=== PATIENT | male | born 1985 | race Caucasian/White ===

== ENCOUNTER 2019-01-04 13:28 | Emergency (ER) | payer OTHER, SELFPAY ==
[2019-01-04 13:50] VITALS: BP 122/76; PULSE 73; RESP 16; TEMP 36.7; O2SAT 100
--- NOTE | 2019-01-04 13:56 | DI.CT_ITS ---
SYMPTOMS/DIAGNOSIS: BLUNT TRAUMA, RIGHT CHEST/ABDOMEN PAIN S/P FALL CT SCAN OF THE CHEST, ABDOMEN AND PELVIS: CT scan of the chest, abdomen and pelvis was performed following the uneventful administration of intravenous contrast material. There are no priors for comparison. CT SCAN OF THE ABDOMEN AND PELVIS: The liver is normal in size. No hepatic mass or laceration is seen. The portal, superior mesenteric and splenic veins are patent. The gallbladder is negative. No biliary ductal dilatation is seen. The pancreas, spleen and adrenal glands are unremarkable. The kidneys show normal and symmetric enhancement. No solid renal mass or obstruction is seen. No laceration is identified. The urinary bladder is intact. The reproductive organs are unremarkable. The bowel shows no evidence of obstruction or inflammation. There is a normal appendix present. The aorta is of normal caliber. No significant abdominal or pelvic adenopathy, ascites or pneumoperitoneum is present. The bones are intact. IMPRESSION: No evidence of an acute abdominal or pelvic organ injury. CT SCAN OF THE CHEST: The thoracic aorta is of normal caliber. The heart size is within normal limits. No significant pericardial effusion is seen. No significant thoracic adenopathy, pleural effusion or pneumothorax is identified. The lungs are clear. The tracheobronchial tree is unremarkable. The bones are intact. IMPRESSION: No evidence of acute thoracic injury.
--- NOTE | 2019-01-04 13:59 | ED.GENADUL_ITS ---
Discharge Plan Disposition Patient Disposition: HOME Condition: Improving Discharge Details Chief Complaint: Chest/Rib Clinical Impression: Contusion of right front wall of thorax Reason For Visit: chest injury / fall Primary Care Provider: Irena Zaldivar ED Provider: Jewel Brown Home Meds and New Rx's Prescriptions: No Action hydrocodone-acetaminophen [Vicodin] 1 EACH tablet 1 ea PO Q6H PRN PRNQty: 14 RF: 0 Discharge Instructions Instructions: Contusion in Adults (ED) Additional Instructions: Home to rest today. You will likely have increased muscular soreness tomorrow. Ibuprofen 800 mg every 8 hours, with food. May also use Tylenol 1000 mg every 6 hours if needed for pain. Ice to reduce discomfort Return if you develop a fever, cough, or any other acute concern Stand Alone Forms: Work Release Medical Decision Making 33-year-old male presents with fall last night from ground-level, landing with the right lateral thorax on a concrete block. He denies loss of conscious but is developed right thorax and abdomen pain over the course of the day today. He arrives with normal vital signs. Differential diagnosis includes rib contusion, underlying fracture, visceral injury of the lung or abdomen. IV placed, was given fluid bolus, referred for laboratory tests and CT images. Patient offered and declined parenteral medication. The images do not reveal underlying visceral or bony injury. Patient remained stable. He is appropriate for outpatient management of right chest wall contusion. Discussed with him home management as well as return precautions. HPI General Mode of arrival: ambulatory . Date/Time Provider Initiated Documentation: 01/04/19 13:52 . Limitations to Documentation: no limitations . Information obtained by: patient . History of Present Illness 33 year old M presents to the emergency department with the chief complaint of Right chest and abdomen pain after fall last night., described as moderate, Quality is described as aching, and is localized to the chest and right. Patient reports radiation to back. Patient started experiencing this hour(s) and it has been constant. Rest improves symptom(s), Movement worsens symptoms . Patient notes denies headaches, syncope and weakness. Patient did receive the following treatments prior to arrival, none Related Data Home Medications Medication Instructions Recorded Confirmed hydrocodone-acetaminophen [Vicodin 1 ea PO Q6H PRN PRN #14 tablet 08/19/16 5-300 mg Tablet] Previous Rx's Medication Instructions Recorded hydrocodone-acetaminophen [Vicodin 1 ea PO Q6H PRN PRN #14 tablet 08/19/16 5-300 mg Tablet] Allergies Allergy/AdvReac Type Severity Reaction Status Date / Time Penicillins Allergy Severe Anaphylaxsi Unverified 01/04/19 13:55 s General Stated Complaint: Chest/Rib RESHMA: 3 Review of Systems Review of Systems 8 systems reviewed and otherwise negative [facility] Social History Smoking and Tabacco status: Current every day Exam Narrative Exam Narrative: GEN: awake, alert, oriented 3. Pleasant, well groomed, interactive. HEAD: Normocephalic, atraumatic ENT: Mucous membranes moist, oropharynx unremarkable, External ear exam unremarkable EYES: PERRL, EOMI NECK: Full ROM, no ISSAC, no menigismus CHEST/RESP: Right lateral chest wall tenderness to palpation, clear to auscultation bilateral, no wheeze/rhonchi/rales CARDIOVASCULAR: RRR, no murmur, rub charles. 2+ Rad pulse bilateral ABDOMEN: Soft, right upper quadrant tenderness to palpate, no mass. +Bowel sounds EXT: Full ROM, no edema, no rash Neuro: Grossly normal neurologic exam, conversant, interactive. Psych: Speech fluent, thoughts congruent, affect normal Course Vital Signs Temperature 36.7 C 01/04/19 13:50 Pulse 73 01/04/19 13:50 Respiratory Rate 16 01/04/19 13:50 Blood Pressure 122/76 01/04/19 13:50 Pulse Oximetry 100 01/04/19 13:50 Temperature 36.7 C 01/04/19 13:50 Temperature Source Temporal Artery Scan 01/04/19 13:50 Pulse 73 01/04/19 13:50 Respiratory Rate 16 01/04/19 13:50 Respiratory Effort 01/04/19 13:54 Blood Pressure 122/76 01/04/19 13:50 Blood Pressure Position Sitting 01/04/19 13:50 Pulse Oximetry 100 01/04/19 13:50 Oxygen Delivery Method Room Air 01/04/19 13:50 Oxygen Flow Rate 0 01/04/19 13:50 Pain Level 10 01/04/19 13:50
[2019-01-04 14:36] LABS: Abs Immature Grans 0.01 k/cumm (0.0-0.09); Absolute Basophil Count 0.08 k/cumm (0.0-0.2); Absolute Eosinophil Count 0.25 k/cumm (0.0-0.7); Absolute Lymphocyte Count 2.47 k/cumm (1.2-3.4); Absolute Monocyte Count 1.26 k/cumm (0.11-0.7); Absolute Neutrophil Count 5.58 k/cumm (1.2-6.7); Basophils % 0.8; Eosinophils % 2.6; HGB 15.9 g/dL (13.5-17.5); Immature Grans % 0.1; Lymphocytes % 25.6; Mean Corp. HGB Concentration 35.3 g/dL (32.0-36.0); Mean Corpuscular Volume 96.2 fL (80-95); Mean Platelet Volume 9.4 fL (8.0-11.0); Monocytes % 13.1; Neutrophils % 57.8; Platelet Count 261 x1000/uL (130-400); RBC 4.68 m/cumm (4.50-6.00); RBC Distribution Width 13.6 % (11.8-14.1); White Blood Cell Count 9.65 k/cumm (4.4-10.8)
[2019-01-04 14:48] LABS: ALT 38 U/L (12-78); AST 37 U/L (15-37); Alkaline Phosphatase 87 U/L (46-116); BUN 8 mg/dL (7-18); Bilirubin, Total 0.2 mg/dL (0.2-1.0); CREATININE 1.16 mg/dL (0.70-1.30); Calcium 8.7 mg/dL (8.5-10.1); Chloride 107 mmol/L (98-107); Glucose 104 mg/dL (70-100); Potassium 3.3 mmol/L (3.5-5.1); Sodium 145 mmol/L (136-145); Total Protein 7.5 g/dL (6.4-8.2)
[2019-01-04] MEDS: Omnipaque 350 MG/ML 100 ML BTL IJ (15:04)
--- NOTE | 2019-01-04 15:12 | DI.VRAD_ITS ---
EXAM: CT Chest With Contrast EXAM DATE/TIME: 01/04/2019 1:58 PM CLINICAL HISTORY: 33 years old, male; Pain; Abdominal pain; Other: Fall, blunt trauma, RT sided chest and abd pain; Chest pain; Right-sided chest pain; Patient HX: RT sided chest and abdominal pain after fall TECHNIQUE: Axial computed tomography images of the chest with intravenous contrast. All CT scans at this facility use at least one of these dose optimization techniques: automated exposure control; mA and/or kV adjustment per patient size (includes targeted exams where dose is matched to clinical indication); or iterative reconstruction. Coronal and sagittal reformatted images were created and reviewed. CONTRAST: 100 ml of Omnipaque 350 administered intravenously. COMPARISON: No relevant prior studies available. FINDINGS: Mediastinum unremarkable. No significant focal consolidation. No pleural effusion. No evidence of pneumothorax. Bony structures intact. IMPRESSION: No evidence of significant cardiopulmonary disease. EXAM: CT Abdomen and Pelvis With Contrast EXAM DATE/TIME: 01/04/2019 1:58 PM CLINICAL HISTORY: 33 years old, male; Pain; Abdominal pain; Other: Fall, blunt trauma, RT sided chest and abd pain; Chest pain; Right-sided chest pain; Patient HX: RT sided chest and abdominal pain after fall TECHNIQUE: Axial computed tomography images of the abdomen and pelvis with intravenous contrast. All CT scans at this facility use at least one of these dose optimization techniques: automated exposure control; mA and/or kV adjustment per patient size (includes targeted exams where dose is matched to clinical indication); or iterative reconstruction. Coronal and sagittal reformatted images were created and reviewed. CONTRAST: 100 ml of Omnipaque 350 administered intravenously. COMPARISON: No relevant prior studies available. FINDINGS: Appendix is normal. Normal appearing solid organs. No intestinal obstruction. No obstructive uropathy. No free fluid. No free air. No inflammatory changes. Bony structures intact. IMPRESSION: No evidence of significant abdominal or pelvic trauma. Dictated and Authenticated by: Raulito David MD. Ordering:STEFANIE Holloway MD
[2019-01-04 15:38] VITALS: BP 118/72; PULSE 80; RESP 16; O2SAT 100
== END 2019-01-04 15:36 | disposition home or self-care (01) ==
PROVIDERS: Emergency Provider Emergency Medicine; PCP Physician Assistant Medical
DX: S20.211A Contusion of right front wall of thorax, initial encounter (principal); W00.0XXA Fall on same level due to ice and snow, initial encounter; W01.198A Fall on same level from slipping, tripping and stumbling with subsequent striking against other object, initial encounter
CPT/HCPCS: 36415; 74177; 80053; 99285; 71260; 85025; 99284; J3490

== ENCOUNTER 2019-04-27 00:07 | Emergency (ER) | payer OTHER, SELFPAY ==
[2019-04-27 00:12] VITALS: BP 141/76; PULSE 77; RESP 16; TEMP 37; O2SAT 97
--- NOTE | 2019-04-27 00:16 | W.ED.GENAD ---
Discharge Plan Disposition Patient Disposition: HOME Condition: Stable Discharge Details Chief Complaint: AnimalBite Clinical Impression: Tick bite Primary Care Provider: Irena Zaldivar ED Provider: Randy Lopes Home Meds and New Rx's Prescriptions: No Action hydrocodone-acetaminophen [Vicodin] 1 EACH tablet 1 ea PO Q6H PRN PRNQty: 7 RF: 0 Discharge Instructions Instructions: Tick Bite (ED) Medical Decision Making 33 yo male noticed a small tick on his back tonight and tried to remove and didn't think he removed it so came here. Denies any other symptoms. He removed the body, and on left mid back lateral to midline has 2mm of erythema with leg and head that are still attached to the skin that I was able to brush away. Will d/c home, doesn't sound like a deer tick and less than 36 horus so do not feel lyme ppx indicated Differential Diagnosis tick bite HPI General Mode of arrival: ambulatory. Date/Time Provider Initiated Documentation: 04/27/19 00:07. Limitations to Documentation: no limitations. Information obtained by: patient. History of Present Illness 33 year old M presents to the emergency department with the chief complaint of tick bite, and is localized to the back. Patient started experiencing this hour(s) (1) and it has been constant. No relieving factors improve symptom(s), No exacerbating factors reported . Patient notes no other symptoms.. Related Data Home Medications Medication Instructions Recorded Confirmed Unknown [No Known Home Meds] 04/27/19 04/27/19 Allergies Allergy/AdvReac Type Severity Reaction Status Date / Time Penicillins Allergy Severe Anaphylaxsi Unverified 04/27/19 00:18 s General RESHMA: 3 Review of Systems Review of Systems All systems reviewed & are unremarkable except as noted in HPI and below Constitutional Denies chills, Denies fever(s) and Denies weakness Cardiovascular Denies chest pain and Denies dyspnea Respiratory Denies cough and Denies dyspnea Gastrointestinal Denies abdominal pain, Denies nausea and Denies vomiting Integumentary/Breasts Denies rash Neurologic Denies weakness [facility] Social History Smoking/Tobacco Use Status: Current every day Alcohol Intake: current Alcohol Intake frequency: a few times a week Drug use: Occasionally Substance use type: marijuana Do you feel safe at home: Yes Do you feel safe in your relationship?: Yes Exam Const General: no acute distress Orientation: alert HENMT Head: normal to inspection Ears: external ears normal General nose exam: external nose normal Mouth: moist mucous membranes Eyes General: appearance normal, both eyes and all related structures Neck Neck: normal visual inspection Resp Effort & Inspection: normal respiratory effort and able to speak in complete sentences Cardio Rate: regular rate Skin General skin exam: no rashes or lesions noted Neuro General: alert and oriented x3 Extrem General: normal to inspection Psych Mental Status: mental status grossly normal
--- NOTE | 2019-04-27 00:20 | ED.GENADUL_ITS ---
Discharge Plan Disposition Patient Disposition: HOME Condition: Stable Discharge Details Chief Complaint: AnimalBite Clinical Impression: Tick bite Primary Care Provider: Irena Zaldivar ED Provider: Randy Lopes Home Meds and New Rx's Prescriptions: No Action hydrocodone-acetaminophen [Vicodin] 1 EACH tablet 1 ea PO Q6H PRN PRNQty: 7 RF: 0 Discharge Instructions Instructions: Tick Bite (ED) Medical Decision Making 33 yo male noticed a small tick on his back tonight and tried to remove and didn't think he removed it so came here. Denies any other symptoms. He removed the body, and on left mid back lateral to midline has 2mm of erythema with leg and head that are still attached to the skin that I was able to brush away. Will d/c home, doesn't sound like a deer tick and less than 36 horus so do not feel lyme ppx indicated Differential Diagnosis tick bite HPI General Mode of arrival: ambulatory . Date/Time Provider Initiated Documentation: 04/27/19 00:07 . Limitations to Documentation: no limitations . Information obtained by: patient . History of Present Illness 33 year old M presents to the emergency department with the chief complaint of tick bite, and is localized to the back. Patient started experiencing this hour(s) (1) and it has been constant. No relieving factors improve symptom(s), No exacerbating factors reported . Patient notes no other symptoms.. Related Data Home Medications Medication Instructions Recorded Confirmed Unknown [No Known Home Meds] 04/27/19 04/27/19 Allergies Allergy/AdvReac Type Severity Reaction Status Date / Time Penicillins Allergy Severe Anaphylaxsi Unverified 04/27/19 00:18 s General RESHMA: 3 Review of Systems Review of Systems All systems reviewed & are unremarkable except as noted in HPI and below Constitutional Denies chills, Denies fever(s) and Denies weakness Cardiovascular Denies chest pain and Denies dyspnea Respiratory Denies cough and Denies dyspnea Gastrointestinal Denies abdominal pain, Denies nausea and Denies vomiting Integumentary/Breasts Denies rash Neurologic Denies weakness [facility] Social History Smoking/Tobacco Use Status: Current every day Alcohol Intake: current Alcohol Intake frequency: a few times a week Drug use: Occasionally Substance use type: marijuana Do you feel safe at home: Yes Do you feel safe in your relationship?: Yes Exam Const General: no acute distress Orientation: alert HENMT Head: normal to inspection Ears: external ears normal General nose exam: external nose normal Mouth: moist mucous membranes Eyes General: appearance normal, both eyes and all related structures Neck Neck: normal visual inspection Resp Effort & Inspection: normal respiratory effort and able to speak in complete sentences Cardio Rate: regular rate Skin General skin exam: no rashes or lesions noted Neuro General: alert and oriented x3 Extrem General: normal to inspection Psych Mental Status: mental status grossly normal
== END 2019-04-27 00:20 | disposition home or self-care (01) ==
PROVIDERS: Emergency Provider Emergency Medicine; PCP Physician Assistant Medical
DX: S20.461A Insect bite (nonvenomous) of right back wall of thorax, initial encounter (principal); W57.XXXA Bitten or stung by nonvenomous insect and other nonvenomous arthropods, initial encounter
CPT/HCPCS: 99283

== ENCOUNTER 2019-05-29 20:45 | Outpatient (REF) | payer OTHER, SELFPAY ==
[2019-05-29 19:31] LABS: ALT 33 U/L (12-78); AST 21 U/L (15-37); Albumin 3.9 g/dL (3.4-5.0); Alkaline Phosphatase 75 U/L (46-116); Anion Gap 12.3 mmol/L (3-11); BUN 13 mg/dL (7-18); Bilirubin, Total 0.3 mg/dL (0.2-1.0); CO2 23.7 mmol/L (21.0-32.0); CREATININE 0.87 mg/dL (0.70-1.30); Calcium 8.6 mg/dL (8.5-10.1); Chloride 107 mmol/L (98-107); Glucose 83 mg/dL (70-100); Potassium 4.3 mmol/L (3.5-5.1); Sodium 143 mmol/L (136-145); TSH (W/Ref FT4) 1.16 uIU/mL (0.358-3.74); Total Protein 6.6 g/dL (6.4-8.2)
== END 2019-05-29 21:05 ==
LOC: NCHCN 20:45
PROVIDERS: PCP Physician Assistant Medical; Visit Provider Physician Assistant Medical
DX: K62.5 Hemorrhage of anus and rectum (principal); F41.9 Anxiety disorder, unspecified
CPT/HCPCS: 80053; 84443

== ENCOUNTER 2019-07-28 11:14 | Emergency (ER) | payer OTHER, SELFPAY ==
[2019-07-28 11:19] VITALS: BP 121/71; PULSE 54; RESP 16; TEMP 36.8; O2SAT 99
[2019-07-28] MEDS: Lidocaine 5% Patch 1 PATCH TP (11:25)
--- NOTE | 2019-07-28 11:25 | DI.RAD_ITS ---
SYMPTOMS/DIAGNOSIS: MEDIAL ELBOW PAIN AND SWELLING RIGHT ELBOW: No fracture or joint effusion is seen. There are no bony erosions. The bones appear normally mineralized. No soft tissue foreign body is seen. IMPRESSION: Negative right elbow.
--- NOTE | 2019-07-28 11:47 | W.ED.GENAD ---
Discharge Plan Disposition Patient Disposition: HOME Condition: Good Discharge Details Chief Complaint: Orthopedic Clinical Impression: Epicondylitis elbow, medial, Elbow sprain Primary Care Provider: Irena Zaldivar ED Provider: Navneet Neil Home Meds and New Rx's Prescriptions: New lidocaine [Lidoderm] 1 PATCH patch 1 patch Topical Q24H Qty: 4 RF: 0 acetaminophen [Mapap Extra Strength] 500 MG tablet 1,000 mg PO Q6H 5 Days Qty: 60 RF: 0 ibuprofen [Motrin IB] 200 MG tablet 600 mg PO Q6H 5 Days Qty: 60 RF: 0 Discharge Instructions Instructions: Tennis Elbow (ED) Additional Instructions: Your symptoms are consistent with medial epicondylitis. This is most likely from strain, and mild injury to the ligaments on the inside component of your elbow. I have included discharge instructions for tennis elbow, however this is for the outside part of your elbow but the education and mechanism are very similar. Please use the forearm brace as directed, use ice as often as possible, take Tylenol and Motrin as needed for pain. Avoid any heavy lifting or use with that elbow. If your symptoms do not improve over the next 1 to 2 weeks with this conservative therapy you may require follow-up with an rfid specialist. If you notice any worsening of your symptoms, or any new symptoms such as vomiting, diarrhea, fever, chills, shortness of breath, chest pain, numbness, weakness, or fainting , please return immediately to the emergency department for reevaluation. Please follow up with your primary care provider as soon as possible for reassessment and reevaluation. As always, it was a pleasure participating in your medical care today. Stand Alone Forms: Work Release Referrals: Irena Zaldivar PA [Primary Care Provider] - Medical Decision Making This is a pleasant 33-year-old male who is [id number] who works at [employer] who presents today for evaluation of right medial elbow pain. He was playing baseball yesterday when he felt significant pain at the medial aspect while pitching, he continued to play throughout the night and this continued to cause significant to moderate pain. He has been using ice but his pain is continued, he is also developed subjective tingling at the distal tips of his third fourth and fifth fingers. Physical exam demonstrates notable swelling over the medial aspect of his elbow. X-rays negative for acute fracture. Symptoms are notably worsened with pronation, flexion of the wrist, and flexion at the elbow. I suspect notable medial epicondylitis, mild bursitis, and potential lateral collateral tendon tear. We will recommend Lidoderm patch, NSAIDs, ice, and close follow-up. We have given him a forearm brace and he has notable improvement of his symptoms with this. We discussed the importance of avoiding activities which can worsen the symptoms, as well as the importance of potentially requiring orthopedic follow-up if his symptoms do not improve with conservative management. I have extensively reviewed the treatment plan and discharge instructions with the patient. I have addressed all patient concerns at this time. The patient was made aware of what symptoms to monitor for that would warrant a return to the emergency department. Discussed the plan with the patient, they demonstrate verbal understanding and agreement with our assessment and plan at this time. HPI General Date/Time Provider Initiated Documentation: 07/28/19 11:18. HPI Narrative: This is a pleasant 33-year-old male who presents today for right elbow pain. He is right-hand dominant. 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 He states that he was playing baseball yesterday when he threw a pitch and noticed some significant pain at the medial aspect of his right elbow. He then continued to play, and every time he would swing the bat his pain would continue or worsen. He noticed significant swelling there this morning, pain is made worse with movement. He does admit to slight tingling over his third fourth and fifth digits over the distal tips. He denies any other complaints or pain in his forearm, shoulder, or hand. He denies any other modifying factors. He has been taking NSAIDs and ice to help with the pain. Related Data Home Medications Medication Instructions Recorded Confirmed acetaminophen [Mapap Extra 1,000 mg PO Q6H 5 Days #60 tab 07/28/19 Strength] ibuprofen [Motrin Ib] 600 mg PO Q6H 5 Days #60 tab 07/28/19 lidocaine [Lidoderm] 1 patch TOPICAL Q24H #4 patch 07/28/19 Previous Rx's Medication Instructions Recorded acetaminophen [Mapap Extra 1,000 mg PO Q6H 5 Days #60 tab 07/28/19 Strength] ibuprofen [Motrin Ib] 600 mg PO Q6H 5 Days #60 tab 07/28/19 lidocaine [Lidoderm] 1 patch TOPICAL Q24H #4 patch 07/28/19 Allergies Allergy/AdvReac Type Severity Reaction Status Date / Time Penicillins Allergy Severe Anaphylaxsi Unverified 07/28/19 11:26 s General Stated Complaint: Orthopedic RESHMA: 4 Review of Systems Review of Systems All systems reviewed & are unremarkable except as noted in HPI and below PFSH Social History Smoking/Tobacco Use Status: Current every day Tobacco Type: cigarettes Alcohol Intake: current Alcohol Intake frequency: a few times a week Drug use: Occasionally Substance use type: marijuana Do you feel safe at home: Yes Do you feel safe in your relationship?: Yes Exam Narrative Exam Narrative: 1.Const: Well-nourished, Well-developed, appearing stated age 2.Eyes: PERRL, no conjunctival injection, and symmetrical lids. 3.ENT: Atraumatic external nose and ears. Moist MM. Neck: Symmetric, trachea midline, No thyromegaly. 4.CVS: +S1/S2, No murmurs or gallops. Peripheral pulses 2+ and equal in all extremities. Brisk capillary refill in all extremities. 5.RESP: Unlabored respiratory effort. Clear to auscultation bilaterally. No wheezes rales or rhonchi 6.GI: Soft, Nontender/Nondistended, No hepatosplenomegaly. No guarding or rebound. 7.MSK: Normocephalic/Atraumatic, Extremities w/o deformity. No cyanosis or clubbing Right upper extremity: Patient demonstrates mild swelling and tenderness over the medial aspect of the right elbow specifically over the medial epicondyles and the cubital tunnel. Pain is notably made worse with pronation, as well as flexion at the elbow. Slightly worsened with extension, no significant pain with pronation. Notable worsening of pain with flexion of the wrist. Not so much with extension. No evidence of significant biceps tendon dislocation. No evidence of triceps dislocation. Capillary refill is brisk. Symmetrically palpable radial and ulnar pulses. Capillary refill less than 2 seconds to all digits. Intact sensation to light touch of the radial, median and ulnar nerves demonstrated by testing in the dorsal web space of the thumb, the distal palmar aspect of the index finger, and the lateral surface of the fifth finger. 2 point discrimination intact to 5mm (up to 6mm can be normal in digits 3-5) of discrimination in the affected digit. Intact motor function of the radial, median and ulnar nerves demonstrated by strength of extension of the isolated distal joint of the index finger, hand soil conservation technician, and spreading of the 2nd through 5th digits. Intact recurrent median nerve as demonstrated by ability to move thumb fully through opposition, abduction and flexion. No snuffbox tenderness. 8.Skin: Warm, Dry. No rashes or lesions. 9.Neuro: family preservation caseworker II-XII grossly intact. Sensation grossly intact, no focal neurologic deficits. Sensation appears to be intact for all fingers on the affected hand, including two-point discrimination up to 5 mm on each finger. 10.Psych: (AAO) x3. Appropriate mood and affect Course Vital Signs Temperature 36.8 C 07/28/19 11:19 Pulse 54 L 07/28/19 11:19 Respiratory Rate 16 07/28/19 11:19 Blood Pressure 121/71 07/28/19 11:19 Pulse Oximetry 99 07/28/19 11:19 Temperature 36.8 C 07/28/19 11:19 Temperature Source Skin 07/28/19 11:19 Pulse 54 L 07/28/19 11:19 Respiratory Rate 16 07/28/19 11:19 Respiratory Effort Non-Labored 07/28/19 11:19 Blood Pressure 121/71 07/28/19 11:19 Blood Pressure Position Sitting 07/28/19 11:19 Pulse Oximetry 99 07/28/19 11:19 Oxygen Delivery Method Room Air 07/28/19 11:19 Oxygen Flow Rate 0 07/28/19 11:19 Pain Level 5 07/28/19 11:19
== END 2019-07-28 12:03 | disposition home or self-care (01) ==
PROVIDERS: Emergency Provider Student in an Organized Health Care Education/Training Program; PCP Physician Assistant Medical
DX: M77.01 Medial epicondylitis, right elbow (principal); S53.401A Unspecified sprain of right elbow, initial encounter; W50.3XXA Accidental bite by another person, initial encounter
CPT/HCPCS: 29105; 99283; 73080

== ENCOUNTER 2020-02-23 01:58 | Outpatient (CLI) | payer OTHER, SELFPAY ==
[2020-02-26 14:37] LABS: SARS-CoV-2 RNA Undetected (Undetected); SARS-CoV-2 Specimen Source Nasopharynx
== END 2020-02-23 02:18 ==
PROVIDERS: PCP Physician Assistant Medical; Visit Provider Specialist/Technologist Athletic Trainer
DX: Z20.828 Contact with and (suspected) exposure to other viral communicable diseases (principal)
CPT/HCPCS: U0003

== ENCOUNTER 2020-09-27 19:30 | Emergency (ER) | payer OTHER, SELFPAY ==
[2020-09-27 19:36] VITALS: BP 138/73; PULSE 81; RESP 20; TEMP 37.2; O2SAT 97
--- NOTE | 2020-09-27 19:46 | ED.GENADUL_ITS ---
Discharge Plan Disposition Patient Disposition: HOME Condition: Improving Discharge Details Clinical Impression: Sciatica, Low back pain Primary Care Provider: Irena Zaldivar ED Provider: Juliana Mayes Home Meds and New Rx's Prescriptions: New diazepam [Valium] 5 mg tablet 5 mg PO TID PRN (Reason: muscle spasm) Qty: 10 RF: 0 Continued lidocaine [Lidoderm] 1 PATCH patch 1 patch Topical Q24H Qty: 4 RF: 0 Discharge Instructions Instructions: Diazepam (By mouth), Sciatica (ED), Low Back Strain (ED) Additional Instructions: Encourage water intake. Encourage gentle stretching and frequent ambulation. You may use a Tylenol brace of Tylenol 4 times a day as well as 600 mg of ibuprofen 4 times a day. You may apply lidocaine patch as previously instructed. Use the Valium as prescribed. Keep this medication in a safe place and use only as directed. Do not drive will take this medication. You may use half to 1 full tab to help with muscle spasm. Attached is a referral to physical therapy. Please call tomorrow to schedule follow-up appointment. Please also call your primary care tomorrow to schedule follow-up in the next 1 to 2 weeks for reevaluation. If you develop fever/chills, sensation changes, change in bowel or bladder habits, rash or other new/worsening symptoms please seek care urgently once again. Stand Alone Forms: Physical Therapy Referral, Work Release Referrals: Irena Zaldivar PA [Primary Care Provider] - Medical Decision Making Patient is a pleasant 35 year old male presenting today with c/c of right sided lower back/buttock pain. He has had pain like this historically. Last time was in 2012 with same presentation. Pain started a few days ago. Worse with rotation to right and forward flexion. 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 He denies any trauma. No change in bowel or bladder habits. Denies any fevers or chills. No sensory deficits. No weakness. Patient's been using Tylenol discomfort. On exam, patient appears uncomfortable. He indicates the upper right buttock is area of discomfort. No rashes or lesions noted. No normal left, no saddle paresthesias. No midline tenderness or paraspinal tenderness. Weakness from prior extremities. Patient does fine improvement with stretching. Patient did well last time with Valium and Toradol. We will give the same Tylenol and Lidoderm patch as well. Discussed this plan with the patient. Patient reports feeling 80% improved. He feels that he is able to go home and rest at this time. I encouraged frequent ambulation and gentle stretching. Patient is stretching on the bed. Will refer patient to physical therapy. Advised to continue with Tylenol and ibuprofen. He does have lidocaine patches at home. Also discussed continuing with p.o. Valium. She did get quite fatigued with Valium given here. I advised that he may cut this in half and take 2.5 mg instead of the full 5. He will not drive while taking this medication. Return precautions were discussed. He will follow up with primary care in the next 2-week if not completely improved. All his questions or sary rns were addressed and he is in agreement this plan. HPI General Mode of arrival: ambulatory . Date/Time Provider Initiated Documentation: 09/27/20 19:31 . Limitations to Documentation: no limitations . Information obtained by: patient and RN notes reviewed . History of Present Illness 35 year old M presents to the emergency department with the chief complaint of right sided low back/buttock pain, described as severe and similar to prior episodes (hx right sided sciatica), with intensity rated at 10. Quality is described as stabbing, and is localized to the buttocks and right. Patient reports no radiation. Patient started experiencing this day(s) and it has been constant. Immobilization improves symptom(s), Movement worsens symptoms . Patient notes no other symptoms.. Patient did receive the following treatments prior to arrival, none Related Data Home Medications Medication Instructions Recorded Confirmed lidocaine [Lidoderm] 1 patch TOPICAL Q24H #4 patch 07/28/19 diazepam [Valium] 5 mg PO TID PRN #10 tab 09/27/20 Previous Rx's Medication Instructions Recorded lidocaine [Lidoderm] 1 patch TOPICAL Q24H #4 patch 07/28/19 diazepam [Valium] 5 mg PO TID PRN #10 tab 09/27/20 Allergies Allergy/AdvReac Type Severity Reaction Status Date / Time Penicillins Allergy Severe Anaphylaxsi Unverified 09/27/20 19:45 s General Stated Complaint: Nk/Back Pain RESHMA: 3 Review of Systems Constitutional Constitutional: Reports as per HPI, Denies chills, Denies fatigue, Denies fever(s), Denies frequent falls and Denies headache(s) Eyes Eyes: Denies change in vision ENT Ears, Nose, Mouth, and Throat: Denies headache(s) Cardiovascular Cardiovascular: Denies chest pain, Denies dyspnea and Denies dyspnea on exertion Respiratory Respiratory: Denies cough, Denies dyspnea and Denies dyspnea on exertion Gastrointestinal Gastrointestinal: Denies abdominal pain, Denies change in bowel habits and Denies fecal incontinence Genitourinary Genitourinary: Reports as per HPI, Denies urinary hesitancy and Denies urinary incontinence Musculoskeletal Musculoskeletal: Reports as per HPI, Reports back pain, Denies muscle weakness, Denies numbness, Denies radiating pain into limb, Reports stiffness and Denies tingling Integumentary/Breasts Skin/Breast: Reports as per HPI and Denies rash Neurologic Neurologic: Reports as per HPI, Denies frequent falls, Denies headache(s), Denies localized weakness, Denies numbness, Denies radicular pain, Denies sensory deficit, Denies tingling and Denies paresthesias Endocrine Endocrine: Denies fatigue [facility] Social History Smoking/Tobacco Use Status: Current every day Tobacco Type: cigarettes Smoking risk assessment performed?: Yes Alcohol Intake: current Alcohol Intake frequency: a few times a week Drug use: Occasionally Substance use type: does not use and marijuana Do you feel safe at home: Yes Do you feel safe in your relationship?: Yes Exam Const General: cooperative, healthy appearing, uncomfortable, no acute distress, well developed and well groomed Nutritional Appearance: average body habitus and well nourished Orientation: alert and awake Eyes General: appearance normal, both eyes and all related structures Neck Neck: normal visual inspection, full ROM, no lymphadenopathy and no meningeal signs Resp Effort & Inspection: normal respiratory effort and able to speak in complete sentences Auscultation: clear to auscultation bilaterally, no rales, no rhonchi and no wheezes Cardio Rate: regular rate Rhythm: regular rhythm Heart Sounds: S1 normal and S2 normal Back/Spine/Pelvis Cervical Spine: normal cervical lordosis Thoracic/Lumbar Spine: thoracic and lumbar spine normal to inspection, thoraco-lumbar ROM normal, pain with thoraco-lumbar ROM (forward flexioin and rotation to the right), No paraspinal tenderness, No thoraco-lumbar ROM limited, No thoraco-lumbar spasm, No thoracic spinal tenderness and No lumbar spinal tenderness Back/spine/pelvis image: 1. area of pain. No erythema, warmth, swelling. No pain with palpation. Skin General skin exam: no rashes or lesions noted Neuro General: patient alert and patient awake Cognition: normal cognition Speech: speech normal Gait: antalgic Motor: muscle tone normal throughout, strength 5/5 throughout, no movement abnormalities noted and no fasciculations Sensory Exam: no sensory deficits noted (no saddle paresthesias) DTR's: Rt Patellar: 2+ and Lt Patellar: 2+ Extrem General: normal to inspection, full ROM, capillary refill normal, no joint enlargement, no pedal edema, no calf tenderness and normal gait Psych Appearance: grossly normal and well kempt Mental Status: mental status grossly normal Speech and Movement: speech and movement normal Course Vital Signs Vital signs: Vital Signs Temperature 37.2 C 09/27/20 19:36 Pulse 81 09/27/20 19:36 Respiratory Rate 09/27/20 19:36 Blood Pressure 138/73 09/27/20 19:36 Pulse Oximetry 97 09/27/20 19:36 Temperature 37.2 C 09/27/20 19:36 Temperature Source Tympanic 09/27/20 19:36 Pulse 81 09/27/20 19:36 Respiratory Rate 20 09/27/20 19:36 Respiratory Effort 09/27/20 19:38 Blood Pressure 138/73 09/27/20 19:36 Pulse Oximetry 97 09/27/20 19:36 Oxygen Delivery Method Room Air 09/27/20 19:36 Oxygen Flow Rate 0 09/27/20 19:36 Pain Level 10 09/27/20 19:36
[2020-09-27] MEDS: Acetaminophen 500 MG TAB 1000 MG PO (20:01)
[2020-09-27] MEDS: diazePAM 5 MG TAB PO ×2 (20:01→20:49)
[2020-09-27] MEDS: Ketorolac 60 MG/2 ML VIAL IM (20:01)
[2020-09-27] MEDS: Lidocaine 5% Patch 1 PATCH TP (20:01)
[2020-09-27 20:47] VITALS: BP 122/83; PULSE 76; RESP 18; O2SAT 97
== END 2020-09-27 20:55 | disposition home or self-care (01) ==
PROVIDERS: Emergency Provider Physician Assistant; PCP Physician Assistant Medical
DX: M54.41 Lumbago with sciatica, right side (principal)
CPT/HCPCS: 96372; 99284; 99283; J1885

== ENCOUNTER 2021-02-07 20:14 | Outpatient (REF) | payer OTHER, SELFPAY ==
[2021-02-07 20:10] LABS: Abs Immature Grans 0.02 10^3/uL (0.0-0.06); Absolute Basophil Count 0.07 10^3/uL (0.0-0.2); Absolute Lymphocyte Count 2.18 10^3/uL (1.2-3.4); Absolute Monocyte Count 0.73 10^3/uL (0.1-0.8); Absolute Neutrophil Count 4.52 10^3/uL (1.2-6.7); Basophils % 0.9; Eosinophils % 3.8; HCT 45.3 % (40.0-50.0); HGB 15.8 g/dL (13.5-17.5); Immature Grans % 0.3; Lymphocytes % 27.9; MCH 33.4 pg (27.0-33.0); MCHC 34.9 % (32.0-36.0); MCV 95.8 fL (80-95); MPV 10.1 fL (8.0-11.0); Monocytes % 9.3; Neutrophils % 57.8; Nucleated RBC 0 %; Platelet Count 281 10^3/uL (130-400); RBC 4.73 10^6/uL (4.36-5.78); RDW-SD 46.5 fL; WBC 7.82 10^3/uL (4.4-10.8)
[2021-02-07 20:24] LABS: ALT 44 U/L (16-63); AST 26 U/L (15-37); Albumin 3.9 g/dL (3.4-5.0); Alkaline Phosphatase 103 U/L (46-116); Anion Gap 10.2 mmol/L (3-11); BUN 14 mg/dL (7-18); Bilirubin, Total 0.5 mg/dL (0.2-1.0); CO2 25.8 mmol/L (21.0-32.0); CREATININE 1.2 mg/dL (0.70-1.30); Calcium 8.9 mg/dL (8.5-10.1); Calculated LDL 156 mg/dL (<100); Chloride 103 mmol/L (98-107); Cholesterol 240 mg/dL (<200); Glucose 86 mg/dL (74-106); HDL Cholesterol 70 mg/dL (40-60); Potassium 4.7 mmol/L (3.5-5.1); Sodium 139 mmol/L (136-145); Total Protein 7.2 g/dL (6.4-8.2); Triglyceride 70 mg/dL (<150)
== END 2021-02-07 20:15 | disposition home or self-care (01) ==
LOC: NCHCN 20:14
PROVIDERS: PCP Physician Assistant Medical; Visit Provider Physician Assistant Medical
DX: Z00.00 Encounter for general adult medical examination without abnormal findings (principal); Z13.220 Encounter for screening for lipoid disorders; Z13.228 Encounter for screening for other metabolic disorders; Z13.0 Encounter for screening for diseases of the blood and blood-forming organs and certain disorders involving the immune mechanism
CPT/HCPCS: 80053; 80061; 85025

== ENCOUNTER 2021-07-25 15:05 | Outpatient (CLI) | payer OTHER, SELFPAY ==
--- NOTE | 2021-07-25 | DI.RAD_ITS ---
Exam(s) XR HAND RT COMPLETE XR WRIST RT COMPL NAVICULAR EXAM: XR HAND RT COMPLETE and XR wrist RT complete with navicular CLINICAL HISTORY: RT HAND PAIN M79.641. TECHNIQUE: 2D digital imaging was performed. COMPARISON: CR XR WRIST RT COMPL NAVICULAR from 07/25/2021 FINDINGS: BONES: No acute fracture is present. No bony destructive lesion is seen. JOINTS: No dislocation present. SOFT TISSUE: Normal. IMPRESSION: No acute fracture or dislocation. DATA REPOSITORY: RADIATION DOSE DELIVERED:
== END 2021-07-25 15:25 ==
PROVIDERS: PCP Physician Assistant Medical; Visit Provider Physician Assistant Medical
DX: M79.641 Pain in right hand (principal)
CPT/HCPCS: 73110; 73130

== ENCOUNTER 2021-11-16 14:01 | Outpatient (REF) | payer OTHER, SELFPAY ==
[2021-11-18 12:40] LABS: COVID-19 RT-PCR UVMMC Result Negative (Negative)
== END 2021-11-16 14:02 | disposition home or self-care (01) ==
LOC: NCHCN 14:01
PROVIDERS: PCP Physician Assistant Medical; Visit Provider Physician Assistant Medical
DX: Z20.822 Contact with and (suspected) exposure to COVID-19 (principal); J06.9 Acute upper respiratory infection, unspecified
CPT/HCPCS: U0003

== ENCOUNTER 2021-12-06 15:46 | Outpatient (REF) | payer OTHER, SELFPAY ==
[2021-12-07 12:23] LABS: COVID-19 RT-PCR UVMMC Result Negative (Negative)
== END 2021-12-06 15:47 | disposition home or self-care (01) ==
LOC: NCHCN 15:46
PROVIDERS: PCP Physician Assistant Medical; Visit Provider Nurse Practitioner Family
DX: Z20.822 Contact with and (suspected) exposure to COVID-19 (principal); J02.9 Acute pharyngitis, unspecified; R05.8 Other specified cough
CPT/HCPCS: U0003; 87070

== ENCOUNTER 2022-09-07 10:50 | Outpatient (REF) | payer OTHER, SELFPAY ==
[2022-09-07 16:49] LABS: Abs Immature Grans 0.02 10^3/uL (0.0-0.06); Absolute Eosinophil Count 0.29 10^3/uL (0.0-0.7); Absolute Lymphocyte Count 2.03 10^3/uL (1.2-3.4); Absolute Monocyte Count 0.91 10^3/uL (0.1-0.8); Absolute Neutrophil Count 6.03 10^3/uL (1.2-6.7); Basophils % 1.1; Eosinophils % 3.1; HCT 43.6 % (40.0-50.0); HGB 15.3 g/dL (13.5-17.5); Immature Grans % 0.2; Lymphocytes % 21.6; MCH 33.7 pg (27.0-33.0); MCHC 35.1 % (32.0-36.0); MCV 96 fL (80-95); MPV 10.3 fL (8.0-11.0); Monocytes % 9.7; Neutrophils % 64.3; Platelet Count 323 10^3/uL (130-400); RBC 4.54 10^6/uL (4.36-5.78); RDW 12.9 % (11.8-14.1); WBC 9.38 10^3/uL (4.4-10.8)
[2022-09-07 17:13] LABS: ALT 35 U/L (16-63); AST 25 U/L (15-37); Albumin 3.9 g/dL (3.4-5.0); Alkaline Phosphatase 87 U/L (46-116); Anion Gap 9.1 mmol/L (3-11); BUN 13 mg/dL (7-18); Bilirubin, Total 0.5 mg/dL (0.2-1.0); CO2 25.9 mmol/L (21.0-32.0); CREATININE 1.1 mg/dL (0.70-1.30); Calcium 9.1 mg/dL (8.5-10.1); Chloride 105 mmol/L (98-107); Estimated GFR 88.67 (mL/min/1.73m2); Glucose 90 mg/dL (74-106); Potassium 3.9 mmol/L (3.5-5.1); Sodium 140 mmol/L (136-145); Total Protein 7.3 g/dL (6.4-8.2)
[2022-09-10 12:09] LABS: Lyme Ab w Rflx to Lyme Confirm Negative (Negative)
[2022-09-12 20:22] LABS: Anaplasma phagocytophilum Negative (Negative); B. miyamotoi PCR Negative (Negative); Babesia divergens/MO-1 Negative (Negative); Babesia duncani Negative (Negative); Babesia microti Negative (Negative); Ehrlichia chaffeensis Negative (Negative); Ehrlichia ewingii/canis Negative (Negative); Ehrlichia muris eauclairensis Negative (Negative)
== END 2022-09-07 10:51 | disposition home or self-care (01) ==
LOC: NCHCN 10:50
PROVIDERS: PCP Physician Assistant Medical; Visit Provider Physician Assistant Medical
DX: R53.83 Other fatigue (principal)
CPT/HCPCS: 80053; 87798; 85025; 86618

== ENCOUNTER 2023-03-30 05:11 | Emergency (ER) | payer OTHER, SELFPAY ==
--- NOTE | 2023-03-30 05:00 | RT.EKG_ITS ---
APPROVED REPORT Exam: Resting ECG Reason for Exam: chest pain Patient Location: E HR:97 bpm ECG Measurements Heart Rate 97 AXIS MI 169 P 67 QRSd 88 QRS 15 QT 341 T 28 QTc 433 Conclusion Sinus rhythm...normal P axis, V-rate 60- 99 Physician: no stemi
[2023-03-30 05:12] VITALS: BP 126/82; PULSE 110; RESP 17; TEMP 37.3; O2SAT 99
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
[2023-03-30 05:22] VITALS: RESP 14
[2023-03-30 05:32] LABS: Abs Immature Grans 0.03 10^3/uL (0.0-0.06); Absolute Basophil Count 0.09 10^3/uL (0.0-0.2); Absolute Eosinophil Count 0.09 10^3/uL (0.0-0.7); Absolute Lymphocyte Count 2.34 10^3/uL (1.2-3.4); Absolute Monocyte Count 0.81 10^3/uL (0.1-0.8); Absolute Neutrophil Count 7.02 10^3/uL (1.2-6.7); Basophils % 0.9; Eosinophils % 0.9; HCT 43.6 % (40.0-50.0); HGB 15.8 g/dL (13.5-17.5); Immature Grans % 0.3; Lymphocytes % 22.5; MCH 33.3 pg (27.0-33.0); MCHC 36.2 % (32.0-36.0); MCV 92 fL (80-95); MPV 8.9 fL (8.0-11.0); Monocytes % 7.8; Neutrophils % 67.6; Platelet Count 332 10^3/uL (130-400); RBC 4.75 10^6/uL (4.36-5.78); RDW 12.8 % (11.8-14.1); WBC 10.38 10^3/uL (4.4-10.8)
--- NOTE | 2023-03-30 05:32 | NUR.NOTE ---
Pt states that he has to urinate. Bathroom in ed is not available at this time d/t construction and pt was given a urinal and offered the bedside commode which he refused. He states I will pee on myself instead He also states I will pee in the bedside commode and dump it in the sink-you aren't getting my urine. He also refuses to keep tele leads on.
[2023-03-30] MEDS: Normal Saline 1,000 ML 1000 ML IV (05:40)
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
[2023-03-30 05:51] LABS: ALT 52 U/L (16-63); AST 37 U/L (15-37); Albumin 4.2 g/dL (3.4-5.0); Alkaline Phosphatase 93 U/L (46-116); Anion Gap 10.3 mmol/L (3-11); BUN 8 mg/dL (7-18); Bilirubin, Total 0.4 mg/dL (0.2-1.0); CO2 24.7 mmol/L (21.0-32.0); CREATININE 1.1 mg/dL (0.70-1.30); Calcium 8.8 mg/dL (8.5-10.1); Chloride 113 mmol/L (98-107); ETHANOL BLOOD 227.7 mg/dL (<10); Estimated GFR 88.12 (mL/min/1.73m2); Glucose 130 mg/dL (74-106); Potassium 4.1 mmol/L (3.5-5.1); Sodium 148 mmol/L (136-145); Total Protein 7.8 g/dL (6.4-8.2); Troponin I < 50 ng/L (<or=60)
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
--- NOTE | 2023-03-30 08:15 | DI.RAD_ITS ---
Exam(s) XR HAND LT COMPLETE EXAM: XR HAND LT COMPLETE CLINICAL HISTORY: pain in hand w/ finger flexion, r/o fx. TECHNIQUE: 2D digital imaging was performed. COMPARISON: CR XR HAND RT COMPLETE from 07/25/2021 FINDINGS: 3 views No evidence of acute fracture or dislocation. No abnormal soft tissue calcifications nor radiopaque foreign bodies. Bone density normal. No osseous lesions. IMPRESSION: No acute osseous findings in the hand. DATA REPOSITORY: RADIATION DOSE DELIVERED:
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
--- NOTE | 2023-03-30 08:15 | DI.RAD_ITS ---
Exam(s) XR CHEST 2V PA LATERAL EXAM: XR CHEST 2V PA LATERAL CLINICAL HISTORY: R sided chest pain, r/o fx/acute disease. TECHNIQUE: 2D digital imaging was performed. COMPARISON: No exams were available for comparison FINDINGS: 2 views: Heart size is normal. The mediastinum is not widened. Lungs are clear. No infiltrates nor pleural effusions. IMPRESSION: No acute pulmonary findings. DATA REPOSITORY: RADIATION DOSE DELIVERED:
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
[2023-03-30 08:53] LABS: Troponin I < 50 ng/L (<or=60)
--- NOTE | 2023-03-30 09:41 | DI.VRAD_ITS ---
PROCEDURE INFORMATION: Exam: XR Chest Exam date and time: 03/30/2023 8:42 AM Age: 37 years old Clinical indication: Other: Right sided chest pain, R/O FX TECHNIQUE: Imaging protocol: Radiologic exam of the chest. Views: 2 views. COMPARISON: CT CHEST/ABD/PEL W 01/04/2019 2:44 PM FINDINGS: Lungs: Unremarkable. No consolidation. Pleural spaces: Unremarkable. No pleural effusion. No pneumothorax. Heart/Mediastinum: Unremarkable. No cardiomegaly. Bones/joints: Unremarkable. IMPRESSION: No acute findings. Dictated and Authenticated by: Wellington Luna MD. Ordering:DAMARIS Sosa MD
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
== END 2023-03-30 09:19 | disposition home or self-care (01) ==
PROVIDERS: Student in an Organized Health Care Education/Training Program; Emergency Provider Physician Assistant; PCP Physician Assistant Medical
DX: R07.9 Chest pain, unspecified (principal); S00.93XA Contusion of unspecified part of head, initial encounter; Y09 Assault by unspecified means; M54.2 Cervicalgia; M79.642 Pain in left hand
CPT/HCPCS: 36415; 76604; 80053; 93005; 93308; 96360; 96361; 99285; 70450; 70486; 71046; 72125; 73130; 80320; 84484; 85025; 93010; 99284

== ENCOUNTER → 2023-08-30 00:58 | Outpatient (CLI) | payer OTHER, SELFPAY ==
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
== END ==
PROVIDERS: PCP Physician Assistant Medical; Visit Provider Nurse Practitioner Family
DX: M54.2 Cervicalgia (principal)
CPT/HCPCS: 72050

== ENCOUNTER 2023-09-24 13:35 | Outpatient (REF) | payer OTHER, SELFPAY ==
[2023-09-24 15:41] LABS: Calculated LDL 173 mg/dL (<100); Cholesterol 258 mg/dL (<200); HDL Cholesterol 63 mg/dL (40-60); Triglyceride 110 mg/dL (<150)
[2023-09-24 15:47] LABS: Hemoglobin A1C 5.3 % (<5.7)
== END 2023-09-24 13:36 | disposition home or self-care (01) ==
LOC: NCHCN 13:35
PROVIDERS: PCP Physician Assistant Medical; Visit Provider Physician Assistant Medical
DX: Z00.8 Encounter for other general examination (principal)
CPT/HCPCS: 80061; 83036

== ENCOUNTER 2024-03-04 15:59 | Outpatient (REF) | payer OTHER, SELFPAY ==
[2024-03-04 20:00] LABS: Abs Immature Grans 0.02 10^3/uL (0.0-0.06); Absolute Basophil Count 0.07 10^3/uL (0.0-0.2); Absolute Eosinophil Count 0.24 10^3/uL (0.0-0.7); Absolute Lymphocyte Count 2.03 10^3/uL (1.2-3.4); Absolute Monocyte Count 0.52 10^3/uL (0.1-0.8); Absolute Neutrophil Count 4.21 10^3/uL (1.2-6.7); Eosinophils % 3.4; HCT 42.6 % (40.0-50.0); HGB 14.7 g/dL (13.5-17.5); Immature Grans % 0.3; Lymphocytes % 28.6; MCHC 34.5 % (32.0-36.0); MCV 96 fL (80-95); MPV 10.2 fL (8.0-11.0); Monocytes % 7.3; Neutrophils % 59.4; Platelet Count 341 10^3/uL (130-400); RBC 4.45 10^6/uL (4.36-5.78); RDW 13.5 % (11.8-14.1); RDW-SD 47.5 fL; WBC 7.09 10^3/uL (4.4-10.8)
[2024-03-06 09:08] LABS: Lyme Ab w Rflx to Lyme Confirm Negative (Negative)
[2024-03-08 14:41] LABS: Anaplasma phagocytophilum Negative (Negative); B. miyamotoi PCR Negative (Negative); Babesia divergens/MO-1 Negative (Negative); Babesia duncani Negative (Negative); Babesia microti Negative (Negative); Ehrlichia chaffeensis Negative (Negative); Ehrlichia ewingii/canis Negative (Negative); Ehrlichia muris eauclairensis Negative (Negative)
== END 2024-03-04 16:00 | disposition home or self-care (01) ==
LOC: NCHCN 15:59
PROVIDERS: PCP Physician Assistant Medical; Visit Provider Physician Assistant Medical
DX: R58 Hemorrhage, not elsewhere classified (principal); L28.2 Other prurigo
CPT/HCPCS: 87798; 85025; 86618